=== PATIENT | male | born 1960 | race Caucasian/White ===

== ENCOUNTER 2019-02-11 12:20 | Inpatient (IN) | payer MEDICARE, OTHER ==
[~2019-02-11] VITALS: Ht 175.3 cm; Wt 64.6 kg
[~2019-02-11 12:20] MED LIST: AMLO-147 ORAL; AMLO-147 PO; ASPI-1163 ORAL; CLOP75TA28 ORAL; HYDR-3609 PO; IBUP200C11 PO; INDO75CA3 ORAL; INSU100I33 SC; NICO-546 TRANSDERM; PIOG15TA12 PO; TAMS-14 PO
[2019-02-11 12:45] VITALS: Ht 175.3 cm; Wt 64.6 kg
[2019-02-11] MEDS ORDERED: ONDANSETRON 4 MG INJ IV STA (13:12)
[2019-02-11] MEDS ORDERED: morphine 4 MG/ML VIAL IV STA (13:12)
[2019-02-11] MEDS ORDERED: ACETAMINOPHEN 325 MG TAB PO PRN ×2 (15:00→15:30)
[2019-02-11] MEDS ORDERED: ONDANSETRON 4 MG INJ IV PRN ×2 (15:00→15:30)
[2019-02-11] MEDS ORDERED: VANCOMYCIN IV PER PHARMACY XX SCH (15:30)
[2019-02-11] MEDS ORDERED: NACL 0.9% 3 ML SYG IV SCH (15:30)
[2019-02-11] MEDS: HYDROCODONE/APAP (5/325) TAB PO PRN ×2 (15:34→21:38)
[2019-02-11] MEDS: NICOTINE (21 MG/24 HR) PATCH TRANSDERM SCH (15:56)
[2019-02-11] MEDS ORDERED: GLUCOSE GEL 15 GRAM TUBE PO PRN ×2 (16:00)
[2019-02-11] MEDS ORDERED: GLUCAGON 1 MG INJ IM PRN (16:00)
[2019-02-11] MEDS ORDERED: GLUCOSE GEL 15 GRAM TUBE BUCCAL PRN (16:00)
[2019-02-11] MEDS ORDERED: DEXTROSE 50% 50 ML SYRINGE IV PRN ×2 (16:00)
[2019-02-11 16:30] VITALS: BP 158/82; PULSE 78; RESP 16
[2019-02-11] MEDS ORDERED: VANCOMYCIN 1.25 GM/NS 250 ML 250 ML IVPB SCH (17:30)
[2019-02-11] MEDS: PIPER-TAZO 3.375 GM IV (PMX) 100 ML IVPB SCH (17:53)
[2019-02-11] MEDS ORDERED: HYDROmorphONE 1 MG/ML SYG IV ONE (18:00)
[2019-02-11] MEDS: INSULIN ASPART [NOVOLOG] 3 ML PEN SC SCH ×2 (18:05→21:00)
[2019-02-11] MEDS: COLLAGENASE 5 GM (UD JAR) TOP SCH (18:36)
[2019-02-11 20:00] VITALS: BP 118/69; PULSE 75; RESP 18
[2019-02-12] MEDS: PIPER-TAZO 3.375 GM IV (PMX) 100 ML IVPB SCH ×5 (00:15→23:19)
[2019-02-12 02:00] VITALS: BP 146/85; PULSE 66; RESP 18
[2019-02-12] MEDS: ACCU-CHEK XX SCH (02:00)
[2019-02-12] MEDS: HYDROCODONE/APAP (5/325) TAB PO PRN ×4 (03:54→21:25)
[2019-02-12] MEDS: VANCOMYCIN 750 MG (PMX) 250 ML IVPB SCH ×2 (06:46→18:15)
[2019-02-12 07:18] VITALS: BP 142/73; PULSE 68; RESP 16
[2019-02-12] MEDS: INSULIN ASPART [NOVOLOG] 3 ML PEN SC SCH ×4 (08:00→21:00)
[2019-02-12] MEDS: AMLODIPINE 10 MG TAB PO SCH (09:54)
[2019-02-12] MEDS: COLLAGENASE 5 GM (UD JAR) TOP SCH (09:55)
[2019-02-12] MEDS: ENOXAPARIN 40 MG/0.4 ML SYG SC SCH (09:56)
[2019-02-12] MEDS: NICOTINE (21 MG/24 HR) PATCH TRANSDERM SCH (12:15)
[2019-02-12 14:31] VITALS: BP 144/85; PULSE 72; RESP 16
[2019-02-12 20:11] VITALS: BP 142/81; PULSE 71; RESP 19
[2019-02-13] MEDS: HYDROmorphONE 1 MG/ML SYG IV PRN ×6 (01:09→22:07)
[2019-02-13] MEDS: ACCU-CHEK XX SCH (02:00)
[2019-02-13 02:14] VITALS: BP 154/80; PULSE 70; RESP 20
[2019-02-13] MEDS: PIPER-TAZO 3.375 GM IV (PMX) 100 ML IVPB SCH ×4 (05:20→23:50)
[2019-02-13] MEDS: VANCOMYCIN 750 MG (PMX) 250 ML IVPB SCH ×2 (06:42→18:13)
[2019-02-13 07:58] VITALS: BP 156/80; PULSE 68; RESP 16
[2019-02-13] MEDS: INSULIN ASPART [NOVOLOG] 3 ML PEN SC SCH ×4 (08:00→21:01)
[2019-02-13] MEDS: AMLODIPINE 10 MG TAB PO SCH (08:46)
[2019-02-13] MEDS: ENOXAPARIN 40 MG/0.4 ML SYG SC SCH (08:46)
[2019-02-13] MEDS: NICOTINE (21 MG/24 HR) PATCH TRANSDERM SCH (09:18)
[2019-02-13] MEDS: HYDROCODONE/APAP (5/325) TAB PO PRN ×3 (11:20→20:21)
[2019-02-13] MEDS: COLLAGENASE 5 GM (UD JAR) TOP SCH (11:20)
[2019-02-13 14:30] VITALS: BP 157/74; PULSE 77; RESP 16
[2019-02-13 19:58] VITALS: BP 181/81; PULSE 79; RESP 16
[2019-02-13 21:00] VITALS: BP 160/80
[2019-02-14] MEDS: HYDROCODONE/APAP (5/325) TAB PO PRN ×4 (00:38→14:34)
[2019-02-14] MEDS: ACCU-CHEK XX SCH (01:53)
[2019-02-14] MEDS: HYDROmorphONE 1 MG/ML SYG IV PRN ×4 (02:07→12:42)
[2019-02-14 02:24] VITALS: BP 153/81; PULSE 86; RESP 18
[2019-02-14] MEDS: PIPER-TAZO 3.375 GM IV (PMX) 100 ML IVPB SCH ×3 (05:28→17:18)
[2019-02-14] MEDS: VANCOMYCIN 750 MG (PMX) 250 ML IVPB SCH ×2 (06:13→18:07)
[2019-02-14] MEDS: INSULIN ASPART [NOVOLOG] 3 ML PEN SC SCH ×4 (07:55→21:07)
[2019-02-14 08:00] VITALS: BP 176/91; PULSE 69; RESP 18
[2019-02-14] MEDS: NICOTINE (21 MG/24 HR) PATCH TRANSDERM SCH (08:26)
[2019-02-14] MEDS: AMLODIPINE 10 MG TAB PO SCH (08:27)
[2019-02-14] MEDS: ENOXAPARIN 40 MG/0.4 ML SYG SC SCH (11:31)
[2019-02-14] MEDS: COLLAGENASE 5 GM (UD JAR) TOP SCH (13:38)
[2019-02-14 14:00] VITALS: BP 137/89; PULSE 94; RESP 18
[2019-02-14] MEDS: HYDROCODONE/APAP (7.5/325) TAB PO PRN ×2 (17:32→21:39)
[2019-02-14] MEDS: HYDROmorphONE 0.5 MG/0.5 ML SYG IV PRN ×2 (19:05→23:44)
[2019-02-14 20:13] VITALS: BP 154/79; PULSE 82; RESP 18
[2019-02-14] MEDS ORDERED: HYDROmorphONE 0.5 MG/0.5 ML SYG IV PRN (20:30)
[2019-02-15] MEDS: PIPER-TAZO 3.375 GM IV (PMX) 100 ML IVPB SCH ×4 (01:15→18:11)
[2019-02-15] MEDS: ACCU-CHEK XX SCH (01:19)
[2019-02-15] MEDS: HYDROCODONE/APAP (7.5/325) TAB PO PRN ×4 (01:51→18:58)
[2019-02-15 02:25] VITALS: BP 147/81; PULSE 83; RESP 18
[2019-02-15] MEDS: HYDROmorphONE 0.5 MG/0.5 ML SYG IV PRN ×4 (04:23→20:42)
[2019-02-15] MEDS: VANCOMYCIN 750 MG (PMX) 250 ML IVPB SCH ×2 (05:16→18:49)
[2019-02-15 08:00] VITALS: BP 140/87; PULSE 84; RESP 18
[2019-02-15] MEDS: INSULIN ASPART [NOVOLOG] 3 ML PEN SC SCH ×4 (08:41→20:41)
[2019-02-15] MEDS: ENOXAPARIN 40 MG/0.4 ML SYG SC SCH (08:43)
[2019-02-15] MEDS: NICOTINE (21 MG/24 HR) PATCH TRANSDERM SCH (09:33)
[2019-02-15] MEDS: AMLODIPINE 10 MG TAB PO SCH (09:34)
[2019-02-15] MEDS: COLLAGENASE 5 GM (UD JAR) TOP SCH (09:35)
[2019-02-15 14:00] VITALS: BP 142/71; PULSE 82; RESP 16
[2019-02-15 19:57] VITALS: BP 134/82; PULSE 80; RESP 18
[2019-02-16] VITALS (15 sets, daily range): BP systolic 142–182; BP diastolic 77–100; PULSE 66–100; RESP 10–22
[2019-02-16] MEDS: PIPER-TAZO 3.375 GM IV (PMX) 100 ML IVPB SCH ×5 (00:12→23:37)
[2019-02-16] MEDS: HYDROCODONE/APAP (7.5/325) TAB PO PRN ×4 (00:12→21:57)
[2019-02-16] MEDS: HYDROmorphONE 0.5 MG/0.5 ML SYG IV PRN ×4 (00:51→15:24)
[2019-02-16] MEDS: INSULIN ASPART [NOVOLOG] 3 ML PEN SC SCH ×5 (02:00→21:23)
[2019-02-16] MEDS: ACCU-CHEK XX SCH (02:28)
[2019-02-16] MEDS: VANCOMYCIN 750 MG (PMX) 250 ML IVPB SCH ×2 (05:53→17:21)
[2019-02-16] MEDS: ENOXAPARIN 40 MG/0.4 ML SYG SC SCH (09:00)
[2019-02-16] MEDS: AMLODIPINE 10 MG TAB PO SCH (09:19)
[2019-02-16] MEDS: COLLAGENASE 5 GM (UD JAR) TOP SCH (09:24)
[2019-02-16] MEDS ORDERED: MIDAZOLAM 1 MG/ML 2 ML INJ ONE (11:10)
[2019-02-16] MEDS ORDERED: HEPARIN 1000 UNITS/NS (A-LINE) 1,000 ML ONE (11:10)
[2019-02-16] MEDS ORDERED: FENTAnyl 50 MCG/ML VIAL ONE (11:10)
[2019-02-16] MEDS ORDERED: LIDOCAINE 1% (MDV) 20 ML INJ ONE (11:10)
[2019-02-16] MEDS ORDERED: IODIXANOL LOCM 100 ML BTL ONE (11:11)
[2019-02-16] MEDS ORDERED: CLOPIDOGREL 300 MG TAB ONE (12:37)
[2019-02-16] MEDS ORDERED: ASPIRIN 81 MG TAB ONE (12:37)
[2019-02-16] MEDS ORDERED: LABETALOL HCL 20MG INJ ONE (13:20)
[2019-02-16] MEDS ORDERED: LABETALOL HCL 20MG INJ IV ONE (13:30)
[2019-02-16] MEDS ORDERED: SOD CHLORIDE 0.9% 1,000 ML IV SCH ×2 (14:00)
[2019-02-16] MEDS ORDERED: hydrALAzine 20 MG INJ IV SCH (15:00)
[2019-02-16] MEDS: NICOTINE (21 MG/24 HR) PATCH TRANSDERM SCH (15:25)
[2019-02-16] MEDS: hydrALAzine 20 MG INJ IV PRN (15:35)
[2019-02-16] MEDS ORDERED: INSULIN ASPART [NOVOLOG] 3 ML PEN SC SCH (17:35)
[2019-02-16] MEDS ORDERED: HYDROmorphONE 0.5 MG/0.5 ML SYG IV PRN (19:00)
[2019-02-16] MEDS: HYDROmorphONE 1 MG/ML SYG IV PRN (23:23)
[2019-02-17 02:00] VITALS: BP 164/83; PULSE 91; RESP 19
[2019-02-17] MEDS: HYDROCODONE/APAP (7.5/325) TAB PO PRN ×2 (02:18→06:18)
[2019-02-17] MEDS: ACCU-CHEK XX SCH ×2 (02:24)
[2019-02-17] MEDS: HYDROmorphONE 1 MG/ML SYG IV PRN ×2 (03:28→08:08)
[2019-02-17] MEDS: PIPER-TAZO 3.375 GM IV (PMX) 100 ML IVPB SCH ×2 (05:11→12:11)
[2019-02-17] MEDS: VANCOMYCIN 750 MG (PMX) 250 ML IVPB SCH ×2 (06:11→17:18)
[2019-02-17 08:00] VITALS: BP 138/80; PULSE 87; RESP 16
[2019-02-17] MEDS: INSULIN ASPART [NOVOLOG] 3 ML PEN SC SCH ×4 (08:00→20:59)
[2019-02-17] MEDS: NICOTINE (21 MG/24 HR) PATCH TRANSDERM SCH (08:08)
[2019-02-17] MEDS: COLLAGENASE 5 GM (UD JAR) TOP SCH (08:08)
[2019-02-17] MEDS: ASPIRIN 81 MG TAB PO SCH (08:09)
[2019-02-17] MEDS: CLOPIDOGREL 75 MG TAB PO SCH (08:09)
[2019-02-17] MEDS: ENOXAPARIN 40 MG/0.4 ML SYG SC SCH (08:10)
[2019-02-17] MEDS: AMLODIPINE 10 MG TAB PO SCH (08:18)
[2019-02-17] MEDS: HYDROCODONE/APAP (10/325) TAB PO PRN ×3 (12:17→21:27)
[2019-02-17 14:00] VITALS: BP 139/80; PULSE 92; RESP 16
[2019-02-17] MEDS: HYDROmorphONE 0.5 MG/0.5 ML SYG IV PRN ×3 (14:45→22:50)
[2019-02-17 20:00] VITALS: BP 179/89; PULSE 80; RESP 17
[2019-02-17] MEDS: hydrALAzine 20 MG INJ IV PRN (21:27)
[2019-02-18] MEDS: ACCU-CHEK XX SCH ×2 (01:38)
[2019-02-18 02:00] VITALS: BP 148/75; PULSE 75; RESP 18
[2019-02-18] MEDS: HYDROCODONE/APAP (10/325) TAB PO PRN ×6 (02:44→23:51)
[2019-02-18] MEDS: HYDROmorphONE 0.5 MG/0.5 ML SYG IV PRN ×5 (03:32→20:32)
[2019-02-18] MEDS: VANCOMYCIN 750 MG (PMX) 250 ML IVPB SCH (05:14)
[2019-02-18] MEDS: LEVOFLOXACIN 500 MG TAB PO SCH (05:14)
[2019-02-18 08:00] VITALS: BP 138/83; PULSE 90; RESP 18
[2019-02-18] MEDS: INSULIN ASPART [NOVOLOG] 3 ML PEN SC SCH ×4 (08:00→20:31)
[2019-02-18] MEDS: ASPIRIN 81 MG TAB PO SCH (08:01)
[2019-02-18] MEDS: CLOPIDOGREL 75 MG TAB PO SCH (08:01)
[2019-02-18] MEDS: NICOTINE (21 MG/24 HR) PATCH TRANSDERM SCH (08:02)
[2019-02-18] MEDS: AMLODIPINE 10 MG TAB PO SCH (08:02)
[2019-02-18] MEDS: COLLAGENASE 5 GM (UD JAR) TOP SCH (08:03)
[2019-02-18] MEDS: ENOXAPARIN 40 MG/0.4 ML SYG SC SCH (08:04)
[2019-02-18 14:00] VITALS: BP 130/84; PULSE 96; RESP 18
[2019-02-18 20:00] VITALS: BP 144/95; PULSE 82; RESP 19
[2019-02-19] MEDS: HYDROmorphONE 0.5 MG/0.5 ML SYG IV PRN ×4 (00:34→13:58)
[2019-02-19] MEDS: ACCU-CHEK XX SCH (01:16)
[2019-02-19 02:00] VITALS: BP 142/80; PULSE 86; RESP 19
[2019-02-19] MEDS: HYDROCODONE/APAP (10/325) TAB PO PRN ×3 (04:16→12:30)
[2019-02-19] MEDS: LEVOFLOXACIN 500 MG TAB PO SCH (05:39)
[2019-02-19 08:00] VITALS: BP 157/90; PULSE 75; RESP 18
[2019-02-19] MEDS: INSULIN ASPART [NOVOLOG] 3 ML PEN SC SCH ×3 (08:00→17:18)
[2019-02-19] MEDS: NICOTINE (21 MG/24 HR) PATCH TRANSDERM SCH (08:05)
[2019-02-19] MEDS: COLLAGENASE 5 GM (UD JAR) TOP SCH (08:05)
[2019-02-19] MEDS: CLOPIDOGREL 75 MG TAB PO SCH (08:05)
[2019-02-19] MEDS: ASPIRIN 81 MG TAB PO SCH (08:05)
[2019-02-19] MEDS: AMLODIPINE 10 MG TAB PO SCH (08:09)
[2019-02-19] MEDS: ENOXAPARIN 40 MG/0.4 ML SYG SC SCH (08:09)
[2019-02-19 14:00] VITALS: BP 134/77; PULSE 76; RESP 19
== END 2019-02-19 18:20 | disposition home or self-care (01) | DRG 271 ==
LOC: E/R 12:20 → PP2 14:38 → SUATTDRO 14:39
PROVIDERS: ADMIT Internal Medicine; ATTEND Hospitalist
PROC: B40GYZZ Plain Radiography of Left Lower Extremity Arteries using Other Contrast (ICD-10-PCS; 2019-02-16)
PROC: 04CL3ZZ Extirpation of Matter from Left Femoral Artery, Percutaneous Approach (ICD-10-PCS; principal; 2019-02-16 11:30)
PROC: 047L3ZZ Dilation of Left Femoral Artery, Percutaneous Approach (ICD-10-PCS; 2019-02-16 11:30)
PROC: B400YZZ Plain Radiography of Abdominal Aorta using Other Contrast (ICD-10-PCS; 2019-02-16 11:30)
DX: E11.52 Type 2 diabetes mellitus with diabetic peripheral angiopathy with gangrene (principal); I96 Gangrene, not elsewhere classified; E11.621 Type 2 diabetes mellitus with foot ulcer; L97.529 Non-pressure chronic ulcer of other part of left foot with unspecified severity; I10 Essential (primary) hypertension; F17.210 Nicotine dependence, cigarettes, uncomplicated; Z79.4 Long term (current) use of insulin
CPT/HCPCS: 36415; 71045; 73564; 75630; 80048; 80053; 80061; 80202; 82962; 83036; 83735; 84100; 84443; 84484; 85025; 85610; 85730; 87081; 93005; 93926; 93970; 96374; 96375; C1725; C1760; C1769; C1887; C1894; J0360; J1170; J1644; J1650; J1815; J2250; J2270; J2405; J2543; J3010; J3370; J7030; Q9967